=== PATIENT | female | born 2000 | race Caucasian/White ===

== ENCOUNTER 2019-11-15 08:01 | Emergency (ER) | payer OTHER, SELFPAY ==
[2019-11-15 08:25] VITALS: BP 112/77; PULSE 86; RESP 16; TEMP 36.6; O2SAT 98
--- NOTE | 2019-11-15 08:32 | ED.URI ---
HPI - URI/Sore Throat General Chief Complaint: Upper Respiratory Infection Stated Complaint: EYE AND THROAT SWELLING Time Seen by Provider: 11/15/19 08:06 History of Present Illness HPI Narrative: Patient is a 18-year-old female who presents the ER with sore throat and tingling in her throat. Noticed it today when she woke up. Associated with postnasal drip, some hoarseness of the voice, and some mild cough. No fevers or chills or sweats or body aches. No known COVID exposures. Reports she has been practicing social distancing wearing a mask. Patient has history of asthma which does not seem to be flying. Concerned she may have strep throat. She is not on any oral medications. Related Data Home Medications Medication Instructions Recorded Confirmed albuterol sulfate [ProAir HFA] 2 puff INHALATION QID PRN 11/15/19 Allergies Allergy/AdvReac Type Severity Reaction Status Date / Time No Known Allergies Allergy Unknown Unverified 11/15/19 08:29 Review of Systems Constitutional: Constitutional: Denies chills and Denies fever(s) ENT: Reports nasal congestion and Reports sore throat Comments: Hoarseness Respiratory: Respiratory: Reports cough, Denies dyspnea and Denies wheezing PMFSH Past Medical History Medical History (Updated 11/15/19 @ 08:39 by Catalino Anderson MD) Asthma Surgical History Surgical History (Updated 11/15/19 @ 08:37 by Catalino Anderson MD) No history of previous surgery Social History Social History (Updated 11/15/19 @ 08:37 by Catalino Anderson MD) Smoking status: Never smoker Alcohol intake: never Substance use: never Gender identity (if verbalized by the patient): Female Exam Narrative: Exam Narrative: GENERAL: Well-appearing, well-nourished, and in no acute distress. HEAD: Normocephalic, atraumatic. ENT: Mucous membranes moist. 2+ tonsils without pharyngeal erythema or exudate on the tonsils. CHEST: Clear to auscultation. No respiratory distress. HEART: Regular rate and rhythm. Normal peripheral pulses. NEURO: Alert and oriented x3. PSYCH: Normal mood and affect. Course Course Emergency Course: Strep screening negative. Suspect URI. Will prescribe Flonase and throat lozenge. Vital Signs Vital signs: Vital Signs Temperature 97.9 F 11/15/19 08:25 Pulse Rate 86 11/15/19 08:25 Respiratory Rate 16 11/15/19 08:25 Blood Pressure 112/77 11/15/19 08:25 Pulse Oximetry 98 11/15/19 08:25 Temperature 97.9 F 11/15/19 08:25 Pulse Rate 86 11/15/19 08:25 Respiratory Rate 16 11/15/19 08:25 Blood Pressure 112/77 11/15/19 08:25 Pulse Oximetry 98 11/15/19 08:25 MDM - URI/Sore Throat Lab Data Labs: Strep Screen Presumptive Negative *(Reference Range: Negative)* Discharge Plan Discharge Clinical Impression: Upper respiratory infection Patient Disposition: Home, Self-Care Condition: Stable Instructions: Upper Respiratory Infection (ED) Additional Instructions: Return to the ER if you have chest pain or shortness of breath, cannot keep down food or water, you lose consciousness, or you have additional concerns. Your strep screen was negative. Prescriptions: New fluticasone propionate [Flonase Allergy Relief] 50 mcg/actuation spray,suspension 1 spray NASAL BID Qty: 9.9 RF: 0 Cepacol Sore Throat (mercedes-[employer]) 15-2.6 mg lozenge 1 lozenge MUCOUS MEM Q2H PRN (Reason: sore throat) Qty: 16 RF: 0 No Action albuterol sulfate [ProAir HFA] 90 mcg/actuation Hfa Aerosol Inhaler 2 puff INHALATION QID PRN (Reason: Allergy Symptoms) RF: 0 Follow-up/Referrals: Leroy,Lanny Stark MD [Primary Care Provider] - 1 Week
[2019-11-15 08:58] VITALS: BP 120/70; PULSE 78; RESP 16; O2SAT 100
== END 2019-11-15 08:58 | disposition home or self-care (01) ==
PROVIDERS: Emergency Provider Emergency Medicine; PCP Family Medicine
DX: J06.9 Acute upper respiratory infection, unspecified (principal); J45.909 Unspecified asthma, uncomplicated
CPT/HCPCS: 87081; 87880; 99283